=== PATIENT | female | born 1945 | race Caucasian/White ===

== ENCOUNTER 2016-07-01 09:50 | Emergency (ER) | payer MEDICARE, MEDICAID ==
[~2016-07-01] VITALS: Ht 167.6 cm; Wt 99.8 kg
[~2016-07-01 09:50] MED LIST: ACET-868 PO; AMLO1CAP2 PO; ASPI81TA2 PO; CLOP75TA2 PO; DICL50TA7 PO; ISOS60TA4 PO; RISE35TA8 PO; SIMV40TA5 PO; SULF1TAB48 PO; TRAM50TA2 PO
[2016-07-01] MEDS ORDERED: IV NS 0.9% 1,000 ML BAG IV ONE (10:30)
[2016-07-01 10:44] LABS: CREATININE 0.7 mg/dL (0.6-1.3); POTASSIUM 4.1 mmol/L (3.5-5.1)
[2016-07-01 10:49] LABS: EOSINOPHILS # (AUTO) 0.1 /CMM (0.0-0.7); EOSINOPHILS % (AUTO) 1.8 % (0.0-6.0); HEMATOCRIT 39 % (33-45); HEMOGLOBIN 13.1 g/dL (11.5-14.8); LYMPHOCYTES # (AUTO) 1.6 /CMM (0.8-4.8); MEAN CORPUSCULAR HEMOGLOBIN 28 PG (26.0-33.0); MEAN CORPUSCULAR HGB CONC 33 g/dl (31.0-36.0); MEAN CORPUSCULAR VOLUME 83 fL (82-100); MONOCYTES # (AUTO) 0.4 /CMM (0.1-1.30); NEUTROPHILS # (AUTO) 1.8 /CMM (1.8-8.9); NEUTROPHILS % (AUTO) 46.2 % (43.0-81.0); PLATELET COUNT (AUTO) 182 /CMM (150-450); RED BLOOD CELL COUNT(AUTO) 4.72 MIL/uL (4.0-5.2); WHITE BLOOD COUNT (AUTO) 3.9 K/uL (4.3-11.0)
[2016-07-01 10:50] LABS: ALBUMIN 3.4 g/dL (3.4-5.0); BILIRUBIN,DIRECT 0.1 mg/dL (0.0-0.2); BILIRUBIN,TOTAL 0.4 mg/dL (0.2-1.0); TOTAL PROTEIN, SERUM 7.6 g/dL (6.4-8.2)
[2016-07-01] MEDS ORDERED: IV NS 0.9% 1,000 ML ONE (10:55)
[2016-07-01] MEDS ORDERED: ONDANSETRON HCL/PF - ER 4 MG/2 ML VIAL IV ONE (11:00)
[2016-07-01] MEDS ORDERED: HYDROMORPHONE 1 MG/1 ML DISP.SYRIN IV ONE (11:00)
[2016-07-01] MEDS ORDERED: HYDROMORPHONE 1 MG/1 ML DISP.SYRIN ONE (11:14)
[2016-07-01] MEDS ORDERED: ONDANSETRON HCL/PF 4 MG/2 ML VIAL ONE (11:14)
[2016-07-01 12:08] VITALS: BP 150/81
== END 2016-07-01 12:09 | disposition home or self-care (01) ==
LOC: ER 09:52
DX: M54.9 Dorsalgia, unspecified (principal); R10.84 Generalized abdominal pain; Z86.73 Personal history of transient ischemic attack (TIA), and cerebral infarction without residual deficits; I10 Essential (primary) hypertension; E11.9 Type 2 diabetes mellitus without complications; Z98.890 Other specified postprocedural states; Z79.82 Long term (current) use of aspirin
CPT/HCPCS: 36415; 74176; 80048; 80076; 83690; 85025; 96361; 96374; 96375; 99285; A4606; J1170; J2405; J7030; Z7610

== ENCOUNTER 2018-10-13 15:27 | Emergency (ER) | payer MEDICARE, OTHER ==
[~2018-10-13] VITALS: Ht 167.6 cm; Wt 97.5 kg
[~2018-10-13 15:27] MED LIST changes: +ASPI-1169 PO; -ASPI81TA2 PO; +CLOP75TA15 PO; -CLOP75TA2 PO
[2018-10-13 15:51] VITALS: BP 91/57
[2018-10-13] MEDS ORDERED: IV NS 0.9% 1,000 ML BAG IV ONE (16:00)
== END 2018-10-13 18:07 | disposition home or self-care (01) ==
LOC: ER 15:27
DX: M86.8X8 Other osteomyelitis, other site (principal); B35.1 Tinea unguium; I10 Essential (primary) hypertension; E11.9 Type 2 diabetes mellitus without complications; E78.5 Hyperlipidemia, unspecified; Z98.890 Other specified postprocedural states; Z86.73 Personal history of transient ischemic attack (TIA), and cerebral infarction without residual deficits; Z79.82 Long term (current) use of aspirin; Z79.899 Other long term (current) drug therapy
CPT/HCPCS: 73140-TC

== ENCOUNTER 2018-12-10 17:57 | Inpatient (IN) | payer MEDICARE, OTHER ==
[~2018-12-10 17:57] MED LIST changes: +LACT1CAP71 PO; +RXVAN XX; -SULF1TAB48 PO
[2018-12-10] MEDS ORDERED: PIPERACILLIN /TAZOBACTAM 3.375 G in IV D5W 50 ML IV ONE ×2 (18:30→22:00)
[2018-12-10] MEDS ORDERED: VANCOMYCIN 1 GM in IV D5W 250 ML IV ONE (19:00)
[2018-12-10] MEDS ORDERED: ONDANSETRON HCL/PF 4 MG/2 ML VIAL IVP PRN (21:00)
[2018-12-10] MEDS ORDERED: MAG HYDROX/AL HYDROX/SIMETH 30 ML UDC PO PRN (21:00)
[2018-12-10] MEDS ORDERED: ZOLPIDEM TARTRATE 5 MG TABLET PO PRN (21:00)
[2018-12-10] MEDS ORDERED: ACETAMINOPHEN 325 MG TABLET PO PRN (21:00)
[2018-12-10] MEDS ORDERED: Z GUARD REMEDY 2 OZ OINT TP PRN (21:00)
[2018-12-10] MEDS ORDERED: MAGNESIUM HYDROXIDE 30 ML UDC PO PRN (21:00)
[2018-12-11] MEDS ORDERED: PIPERACILLIN /TAZOBACTAM 3.375 G in IV D5W 50 ML IV SCH ×2
[2018-12-11] MEDS ORDERED: PIPERACILLIN /TAZOBACTAM 3.375 G in IV D5W 50 ML IV ONE (01:00)
[2018-12-11] MEDS ORDERED: PIPERACILLIN /TAZOBACTAM 3.375 G VIAL IV ONE (01:30)
[2018-12-11] MEDS: LACTOBACILLUS RHAMNOSUS GG 1 EACH CAP.SPRINK PO SCH (08:27)
[2018-12-11] MEDS: ASPIRIN 81 MG TAB.CHEW PO SCH (08:27)
[2018-12-11] MEDS: CLOPIDOGREL BISULFATE 75 MG TABLET PO SCH (08:27)
[2018-12-11] MEDS: TRAMADOL HCL 50 MG TABLET PO SCH ×2 (08:27→16:09)
[2018-12-11] MEDS: PIPERACILLIN /TAZOBACTAM 3.375 G in IV D5W 100 ML IV SCH ×2 (08:28→16:09)
[2018-12-11] MEDS: BENAZEPRIL HCL 20 MG TABLET PO SCH (08:28)
[2018-12-11] MEDS ORDERED: DICLOFENAC SODIUM 50 MG TABLET.DR PO SCH (09:00)
[2018-12-11] MEDS ORDERED: ISOSORBIDE MONONITRATE 60 MG TAB.SR.24H PO SCH (09:00)
[2018-12-11] MEDS ORDERED: Medication Not On Formulary EA (Amlodipine Besylate/Benazepril (Lotrel 10-40 Mg Capsule) PO SCH (09:00)
[2018-12-11] MEDS: AMLODIPINE BESYLATE 5 MG TABLET PO SCH (09:00)
[2018-12-11] MEDS: ISOSORBIDE MONONITRATE (30MG) 30 MG TAB.SR.24H PO SCH ×2 (10:32→16:10)
[2018-12-11] MEDS: VANCOMYCIN 1 GM in IV D5W 250 ML IV SCH ×2 (12:02→22:54)
[2018-12-11] MEDS ORDERED: FEE PK DOSING 1 MIN EA MC ONE (12:08)
[2018-12-11] MEDS: HYDROCODONE/APAP 5/325MG 1 EACH TABLET PO PRN ×2 (12:11→20:44)
[2018-12-11] MEDS: DICLOFENAC SODIUM 25 MG TABLET.DR PO SCH (16:09)
[2018-12-11] MEDS: CLOTRIMAZOLE/BETAMETASONE DIPROPIONATE 15 GM TUBE TP SCH (17:42)
[2018-12-11] MEDS: CLOTRIMAZOLE 1% 15 GM TUBE TP SCH (17:43)
[2018-12-11] MEDS ORDERED: SIMVASTATIN 40 MG TABLET PO SCH (18:00)
[2018-12-11] MEDS ORDERED: SIMVASTATIN 20 MG TABLET PO SCH (22:00)
[2018-12-12] MEDS: PIPERACILLIN /TAZOBACTAM 3.375 G in IV D5W 100 ML IV SCH ×3 (01:31→16:10)
[2018-12-12] MEDS: HYDROCODONE/APAP 5/325MG 1 EACH TABLET PO PRN (06:12)
[2018-12-12] MEDS ORDERED: ALENDRONATE 70 MG TABLET PO SCH (07:30)
[2018-12-12] MEDS: CLOPIDOGREL BISULFATE 75 MG TABLET PO SCH (08:03)
[2018-12-12] MEDS: ISOSORBIDE MONONITRATE (30MG) 30 MG TAB.SR.24H PO SCH ×2 (08:03→17:23)
[2018-12-12] MEDS: TRAMADOL HCL 50 MG TABLET PO SCH ×2 (08:03→17:23)
[2018-12-12] MEDS: BENAZEPRIL HCL 20 MG TABLET PO SCH (08:03)
[2018-12-12] MEDS: LACTOBACILLUS RHAMNOSUS GG 1 EACH CAP.SPRINK PO SCH (08:03)
[2018-12-12] MEDS: DICLOFENAC SODIUM 25 MG TABLET.DR PO SCH ×2 (08:04→17:23)
[2018-12-12] MEDS: AMLODIPINE BESYLATE 5 MG TABLET PO SCH (08:04)
[2018-12-12] MEDS: ASPIRIN 81 MG TAB.CHEW PO SCH (08:04)
[2018-12-12] MEDS: CLOTRIMAZOLE/BETAMETASONE DIPROPIONATE 15 GM TUBE TP SCH ×2 (08:08→17:23)
[2018-12-12] MEDS: CLOTRIMAZOLE 1% 15 GM TUBE TP SCH ×2 (08:11→17:23)
[2018-12-12] MEDS ORDERED: ISOSORBIDE MONONITRATE (30MG) 30 MG TAB.SR.24H PO SCH (09:00)
[2018-12-12] MEDS: VANCOMYCIN 1 GM in IV D5W 250 ML IV SCH (11:38)
[2018-12-12] MEDS: CEFTRIAXONE IV SCH (20:12)
[2018-12-12] MEDS: D5W IV SCH (20:12)
[2018-12-12] MEDS: CIPROFLOXACIN HCL 500 MG TABLET PO SCH (21:23)
[2018-12-13] MEDS: BENAZEPRIL HCL 20 MG TABLET PO SCH (08:16)
[2018-12-13] MEDS: LACTOBACILLUS RHAMNOSUS GG 1 EACH CAP.SPRINK PO SCH (08:16)
[2018-12-13] MEDS: CIPROFLOXACIN HCL 500 MG TABLET PO SCH ×2 (08:16→20:10)
[2018-12-13] MEDS: ASPIRIN 81 MG TAB.CHEW PO SCH (08:16)
[2018-12-13] MEDS: ISOSORBIDE MONONITRATE (30MG) 30 MG TAB.SR.24H PO SCH ×2 (08:16→16:32)
[2018-12-13] MEDS: AMLODIPINE BESYLATE 5 MG TABLET PO SCH (08:17)
[2018-12-13] MEDS: CLOPIDOGREL BISULFATE 75 MG TABLET PO SCH (08:18)
[2018-12-13] MEDS: DICLOFENAC SODIUM 25 MG TABLET.DR PO SCH ×2 (08:18→16:32)
[2018-12-13] MEDS: TRAMADOL HCL 50 MG TABLET PO SCH ×2 (08:18→16:32)
[2018-12-13] MEDS: CLOTRIMAZOLE/BETAMETASONE DIPROPIONATE 15 GM TUBE TP SCH ×2 (08:24→16:35)
[2018-12-13] MEDS: CLOTRIMAZOLE 1% 15 GM TUBE TP SCH ×2 (08:26→16:35)
[2018-12-13] MEDS: D5W IV SCH (20:10)
[2018-12-13] MEDS: CEFTRIAXONE IV SCH (20:10)
[2018-12-14] MEDS: TRAMADOL HCL 50 MG TABLET PO SCH (08:37)
[2018-12-14] MEDS: CIPROFLOXACIN HCL 500 MG TABLET PO SCH (08:37)
[2018-12-14] MEDS: CLOPIDOGREL BISULFATE 75 MG TABLET PO SCH (08:38)
[2018-12-14] MEDS: ISOSORBIDE MONONITRATE (30MG) 30 MG TAB.SR.24H PO SCH (08:38)
[2018-12-14] MEDS: LACTOBACILLUS RHAMNOSUS GG 1 EACH CAP.SPRINK PO SCH (08:38)
[2018-12-14] MEDS: AMLODIPINE BESYLATE 5 MG TABLET PO SCH (08:38)
[2018-12-14] MEDS: BENAZEPRIL HCL 20 MG TABLET PO SCH (08:38)
[2018-12-14] MEDS: DICLOFENAC SODIUM 25 MG TABLET.DR PO SCH (08:39)
[2018-12-14] MEDS: CLOTRIMAZOLE/BETAMETASONE DIPROPIONATE 15 GM TUBE TP SCH (08:40)
[2018-12-14] MEDS: CLOTRIMAZOLE 1% 15 GM TUBE TP SCH (08:40)
[2018-12-14] MEDS: ASPIRIN 81 MG TAB.CHEW PO SCH (08:42)
[2018-12-14] MEDS ORDERED: CEFT1VIA15 IV (11:08)
[2018-12-14] MEDS ORDERED: CIPR500T5 PO (11:08)
== END 2018-12-14 13:30 | disposition home health service (06) | DRG 344 ==
DX: M86.8X4 Other osteomyelitis, hand (principal); I69.851 Hemiplegia and hemiparesis following other cerebrovascular disease affecting right dominant side; E11.9 Type 2 diabetes mellitus without complications; E66.9 Obesity, unspecified; L03.012 Cellulitis of left finger; E78.5 Hyperlipidemia, unspecified; N39.0 Urinary tract infection, site not specified; I10 Essential (primary) hypertension; M81.0 Age-related osteoporosis without current pathological fracture; Z68.30 Body mass index [BMI] 30.0-30.9, adult; L30.4 Erythema intertrigo; Z79.02 Long term (current) use of antithrombotics/antiplatelets

== ENCOUNTER 2018-12-24 10:30 | Outpatient (CLI) | payer MEDICARE, OTHER ==
[~2018-12-24 10:30] MED LIST changes: +CEFT1VIA15 IV; +CIPR500T5 PO; -RXVAN XX
== END 2018-12-24 23:59 | disposition home health service (06) ==
LOC: WOU 10:30
PROVIDERS: ATTEND Specialist
DX: Z01.818 Encounter for other preprocedural examination (principal); E11.69 Type 2 diabetes mellitus with other specified complication; M86.642 Other chronic osteomyelitis, left hand; I69.359 Hemiplegia and hemiparesis following cerebral infarction affecting unspecified side; Z89.022 Acquired absence of left finger(s); Z79.84 Long term (current) use of oral hypoglycemic drugs; Z79.899 Other long term (current) drug therapy; I50.9 Heart failure, unspecified
CPT/HCPCS: G0463

== ENCOUNTER 2018-12-29 15:00 | Outpatient (CLI) | payer MEDICARE, OTHER | END 2018-12-29 23:59 | disposition home health service (06) | LOC: WOU 15:00 | PROVIDERS: ATTEND Surgery | DX: E11.69 Type 2 diabetes mellitus with other specified complication (principal); M86.642 Other chronic osteomyelitis, left hand; I50.9 Heart failure, unspecified; I69.351 Hemiplegia and hemiparesis following cerebral infarction affecting right dominant side; Z79.84 Long term (current) use of oral hypoglycemic drugs | CPT/HCPCS: G0463 ==

== ENCOUNTER 2019-01-11 12:26 | Emergency (ER) | payer MEDICARE, OTHER ==
[~2019-01-11] VITALS: Ht 165.1 cm; Wt 81.6 kg
[~2019-01-11 12:26] MED LIST changes: +SIMV-49 PO; -SIMV40TA5 PO
--- NOTE | 2019-01-11 13:13 | NUR ---
PICC LINE CONSENT FORM SIGNED BY SON-IN-LAW.
--- NOTE | 2019-01-11 13:20 | NUR ---
PICC LINE NURSE AT BEDSIDE
--- NOTE | 2019-01-11 14:22 | NUR ---
NEWS ANALYST AT BEDSIDE
[2019-01-11 15:38] LABS: BASOPHILS # (AUTO) 0.1 /CMM (0.0-0.2); BASOPHILS % (AUTO) 1.1 % (0.0-2.0); EOSINOPHILS % (AUTO) 3.9 % (0.0-6.0); HEMATOCRIT 36 % (33-45); HEMOGLOBIN 12.3 g/dL (11.5-14.8); LYMPHOCYTES # (AUTO) 1.9 /CMM (0.8-4.8); LYMPHOCYTES % (AUTO) 32.6 % (20.0-44.0); MEAN CORPUSCULAR HGB CONC 34 g/dl (31.0-36.0); MEAN CORPUSCULAR VOLUME 79 fL (82-100); MONOCYTES # (AUTO) 0.6 /CMM (0.1-1.30); MONOCYTES % (AUTO) 9.6 % (2.0-12.0); NEUTROPHILS # (AUTO) 3.1 /CMM (1.8-8.9); NEUTROPHILS % (AUTO) 52.8 % (43.0-81.0); PLATELET COUNT (AUTO) 271 /CMM (150-450); RED BLOOD CELL COUNT(AUTO) 4.59 MIL/uL (4.0-5.2); WHITE BLOOD COUNT (AUTO) 5.8 K/uL (4.3-11.0)
[2019-01-11 16:05] LABS: CALCIUM, SERUM 9.1 mg/dL (8.5-10.1); CREATININE 0.7 mg/dL (0.6-1.3)
--- NOTE | 2019-01-11 16:42 | NUR ---
[id number] [facility]
--- NOTE | 2019-01-11 17:00 | NUR ---
CALLED [facility], PAGED GLORIA LEON
--- NOTE | 2019-01-11 18:20 | NUR ---
DR GLORIA LEON AT BEDSIDE FOR PICC LINE INSERTION
--- NOTE | 2019-01-11 18:46 | NUR ---
GLORIA LEON CONFIRMED PLACEMENT OF R FEMORAL PICC LINE, OK TO USE. PATIENT AND DAUGHTER AT BEDSIDE AWARE
--- NOTE | 2019-01-11 19:02 | NUR ---
Patient discharged to home with daughter in stable condition. Written and verbal after care instructions given. Patient and daughter verbalizes understanding of instruction.
[2019-01-11 19:04] VITALS: BP 127/62
== END 2019-01-11 19:04 | disposition home or self-care (01) ==
LOC: ER 12:26 → MED 17:04 → UNDOADMIN 17:04 → ER 19:04
DX: T82.524A Displacement of infusion catheter, initial encounter (principal); I10 Essential (primary) hypertension; E11.9 Type 2 diabetes mellitus without complications; Z86.73 Personal history of transient ischemic attack (TIA), and cerebral infarction without residual deficits; Z98.890 Other specified postprocedural states; Z79.899 Other long term (current) drug therapy; Z79.82 Long term (current) use of aspirin
CPT/HCPCS: 36415; 36569; 74018; 80048; 85025; 85730; 87081; 99285; C1751 ×3

== ENCOUNTER 2019-01-19 12:15 | Outpatient (CLI) | payer MEDICARE, OTHER | END 2019-01-19 23:59 | disposition home health service (06) | LOC: WOU 12:15 | PROVIDERS: ATTEND Surgery | DX: E11.69 Type 2 diabetes mellitus with other specified complication (principal); M86.642 Other chronic osteomyelitis, left hand; I50.9 Heart failure, unspecified; I69.351 Hemiplegia and hemiparesis following cerebral infarction affecting right dominant side; Z79.84 Long term (current) use of oral hypoglycemic drugs | CPT/HCPCS: G0463 ==

== ENCOUNTER 2019-02-09 12:35 | Outpatient (CLI) | payer MEDICARE, OTHER ==
[~2019-02-09 12:35] MED LIST changes: -SIMV-49 PO; +SIMV40TA5 PO
== END 2019-02-09 23:59 | disposition home health service (06) ==
LOC: WOU 12:35
PROVIDERS: ATTEND Surgery
DX: E11.69 Type 2 diabetes mellitus with other specified complication (principal); M86.642 Other chronic osteomyelitis, left hand; Z79.84 Long term (current) use of oral hypoglycemic drugs; Z89.022 Acquired absence of left finger(s); I50.9 Heart failure, unspecified; I69.351 Hemiplegia and hemiparesis following cerebral infarction affecting right dominant side
CPT/HCPCS: G0463